=== PATIENT | male | born 1970 | race Caucasian/White ===

== ENCOUNTER → 2018-01-27 | Outpatient (REF) | payer OTHER ==
[2018-01-27 18:02] LABS: APPEARANCE, URINE HAZY (CLEAR); BACTERIA, URINE AUTO NEGATIVE (NEGATIVE); BILIRUBIN, URINE AUTO NEGATIVE (NEGATIVE); BLOOD, URINE BLOOD 2+ (NEGATIVE); COLOR, URINE YELLOW (YELLOW); GLUCOSE, URINE (UA) AUTO NEGATIVE (NEGATIVE); KETONE, URINE AUTO TRACE mg/dL (NEGATIVE); LEUKOCYTE ESTERASE, URINE AUTO NEGATIVE (NEGATIVE); MUCUS, URINE SMALL (NEGATIVE); NITRITE, URINE AUTO NEGATIVE (NEGATIVE); PROTEIN, URINE AUTO NEGATIVE (NEGATIVE); RBC, URINE AUTO 7 /HPF (0-3); SPECIFIC GRAVITY URINE AUTO 1.026 (1.002-1.035); SQUAMOUS EPITHELIAL CELL UR AU 0 /HPF (0-6); UROBILINOGEN, URINE AUTO 0.2 mg/dL (0.0-2.0); WBC, URINE AUTO 1 /HPF (0-3)
== END ==
LOC: M SMT 17:06
DX: R39.11 Hesitancy of micturition (principal)
CPT/HCPCS: 81001

== ENCOUNTER → 2018-02-05 | Outpatient (CLI) | payer OTHER ==
[~2018-02-05] MED LIST: ISOVUE-370 76% 100ML VIAL (Q9967) As Ordered
== END ==
LOC: M RAD 16:07
DX: R31.29 Other microscopic hematuria (principal); N28.1 Cyst of kidney, acquired; N20.0 Calculus of kidney
CPT/HCPCS: Q9967

== ENCOUNTER 2018-07-04 03:08 | Emergency (ER) | payer OTHER ==
[~2018-07-04] VITALS: Ht 177.8 cm; Wt 100.0 kg
[2018-07-04] MEDS ORDERED: PROBCAP14 PO (03:20)
[2018-07-04] MEDS ORDERED: IBUP80TA PO (03:20)
[2018-07-04] MEDS ORDERED: FLOM0.4C39 PO (03:20)
[2018-07-04] MEDS ORDERED: ASPI81CH30 PO (03:20)
[2018-07-04] MEDS ORDERED: CARDCAP3 PO (03:20)
[2018-07-04] MEDS ORDERED: MAGN400C2 PO (03:20)
[2018-07-04] MEDS ORDERED: VITA500C24 PO (03:20)
[2018-07-04 04:07] LABS: BASO # 0.1 10^3/uL (0.0-0.2); BASO % 0.7 % (0.0-1.0); EOS # 0.2 10^3/uL (0.0-0.50); EOS % 2.4 % (0.0-3.0); HEMATOCRIT 39.1 % (42.0-52.0); HEMOGLOBIN 13.3 g/dl (13.5-17.5); LYMPH # 2.4 10^3/uL (1.5-4.5); LYMPH % 29.1 % (24.0-44.0); MEAN CORPUSCULAR HEMOGLOBIN 29.8 pg (27.0-33.0); MEAN CORPUSCULAR VOLUME 87.7 fl (80.0-96.0); MONO # 0.7 10^3/uL (0.0-0.8); NEUTROPHILS % 59.6 % (36.0-66.0); PLATELET COUNT, AUTOMATED 275 10^3/uL (150-450); RED BLOOD COUNT 4.46 10^6/uL (4.30-6.10); WHITE BLOOD COUNT 8.4 10^3/uL (4.0-10.0)
[2018-07-04 04:26] LABS: ALBUMIN 4.4 GM/DL (3.2-5.2); ALT/SGPT 30 U/L (12-78); BILIRUBIN,DIRECT < 0.1 MG/DL (0.0-0.2); BILIRUBIN,TOTAL 0.2 MG/DL (0.2-1.0); BLOOD UREA NITROGEN 16 MG/DL (7-18); CARBON DIOXIDE LEVEL 28 MEQ/L (21-32); CHLORIDE LEVEL 107 MEQ/L (98-107); CREATININE FOR GFR 1.18 MG/DL (0.70-1.30); GLOMERULAR FILTRATION RATE > 60.0 (>56); GLUCOSE, FASTING 127 MG/DL (70-100); LIPASE 168 U/L (73-393); SODIUM LEVEL 140 MEQ/L (136-145); TOTAL PROTEIN 7.2 GM/DL (6.4-8.2)
[2018-07-04] MEDS ORDERED: ONDANSETRON 4MG/2ML VIAL (J2405) IV ONE (04:30)
[2018-07-04] MEDS ORDERED: MORPHINE 4 MG/ML 1ML VIAL/SYRINGE (J2270) IV ONE ×2 (04:30→05:15)
[2018-07-04] MEDS ORDERED: NS 1,000 ML IV ONE ×2 (04:30→05:45)
--- NOTE | 2018-07-04 05:33 | REPVR ---
EXAM: CT Abdomen and Pelvis Without Contrast EXAM DATE/TIME: 07/04/18 (4:45am) CLINICAL HISTORY: 48 year old male with generalized abdominal pain. Colic. TECHNIQUE: Imaging protocol: Axial computed tomography images of the abdomen and pelvis without contrast. Coronal and sagittal reformatted images were created and reviewed. Radiation optimization: All CT scans at this facility use at least one of these dose optimization techniques: automated exposure control; mA and/or kV adjustment per patient size (includes targeted exams where dose is matched to clinical indication); or iterative reconstruction. COMPARISON: CT ABDOMEN PELVIS of 02/05/18 FINDINGS: ABDOMEN: Liver: Normal. No solid mass. Gallbladder and bile ducts: Normal. No calcified stones. No ductal dilatation. Pancreas: Normal. No ductal dilatation. Spleen: Normal. No splenomegaly. Adrenals: Normal. No mass. Kidneys and ureters: Mild right hydroureteronephrosis. Punctate stone (1-2 mm size) at the right UV junction (axial image #135). Stomach and bowel: Normal. No bowel obstruction. No mucosal thickening. Appendix: A normal appendix is visualized. PELVIS: Bladder: Unremarkable as visualized. Reproductive: Unremarkable as visualized. ABDOMEN and PELVIS: Intraperitoneal space: Normal. No free air. No significant fluid collection. Bones/joints: No acute fracture nor dislocation. Soft tissues: Unremarkable. Vasculature: Normal. No abdominal aortic aneurysm. Lymph nodes: Normal. No enlarged lymph nodes. IMPRESSION: Mild right hydroureteronephrosis. Punctate stone (1-2 mm size) at the right UV junction. Electronically signed by: Genevieve Serra On 07/04/2018 05:33:03 AM
[2018-07-04] MEDS ORDERED: TAMSULOSIN 0.4 MG CAP PO ONE ×2 (05:45→06:00)
[2018-07-04] MEDS ORDERED: KETOROLAC 30 MG/ML VIAL (J1885) IV ONE (05:45)
[2018-07-04 07:38] VITALS: BP 113/74
== END 2018-07-04 07:41 | disposition home or self-care (01) ==
LOC: M ED 03:08
DX: N20.1 Calculus of ureter (principal); Z79.899 Other long term (current) drug therapy; Z79.82 Long term (current) use of aspirin
CPT/HCPCS: 74176; 80048; 80076; 81001; 83690; 85025; 87086; 96374; 96375; 96376; 99284; J1885; J2270; J2405